=== PATIENT | female | born 1995 | race Caucasian/White ===

== ENCOUNTER 2021-01-22 19:16 | Outpatient (CLI) | payer BC ==
[~2021-01-22 19:16] MED LIST: COLACE 100MG C100 MG PO; IBUPROFEN600 MG PO; LORTAB 5-325 M1 EACH PO
== END 2021-01-22 22:06 | disposition home or self-care (01) ==
LOC: GENOP 19:16
DX: O99.891 Other specified diseases and conditions complicating pregnancy (principal); M54.9 Dorsalgia, unspecified; Z3A.24 24 weeks gestation of pregnancy
CPT/HCPCS: 81001; 96360

== ENCOUNTER 2021-05-01 05:25 | Inpatient (IN) | payer BC ==
[~2021-05-01] VITALS: Ht 165.1 cm; Wt 97.1 kg
[2021-05-01] MEDS ORDERED: PRENATABS FA T1 EACH PO (06:14)
[2021-05-01 06:53] LABS: HEMOGLOBIN 12.1 gm/dl (12.3-15.3); RED BLOOD COUNT 4.91 M/UL (4.00-5.10)
[2021-05-01 07:20] LABS: BUN/CREATININE RATIO 14 (0-10)
[2021-05-01] MEDS ORDERED: HYDROCODON-ACE1 EAC6 PO (07:41)
[2021-05-01] MEDS ORDERED: COLACE 100MG C100 MG PO (07:41)
[2021-05-01] MEDS ORDERED: IBUPROFEN600 MG PO (07:41)
[2021-05-01 23:04] LABS: HEMOGLOBIN 11.2 gm/dl (12.3-15.3)
== END 2021-05-01 23:19 | disposition home or self-care (01) | DRG 788 ==
LOC: OB 05:25
PROVIDERS: Obstetrics & Gynecology; ADMIT Obstetrics & Gynecology
PROC: 4A1HXCZ Monitoring of Products of Conception, Cardiac Rate, External Approach (ICD-10-PCS; 2021-05-01)
PROC: 10D00Z1 Extraction of Products of Conception, Low, Open Approach (ICD-10-PCS; principal; 2021-05-01 07:40)
DX: O34.211 Maternal care for low transverse scar from previous cesarean delivery (principal); O13.4 Gestational [pregnancy-induced] hypertension without significant proteinuria, complicating childbirth; Z3A.38 38 weeks gestation of pregnancy; Z37.0 Single live birth; Z20.822 Contact with and (suspected) exposure to COVID-19; O99.344 Other mental disorders complicating childbirth; F41.9 Anxiety disorder, unspecified; F32.A Depression, unspecified; Z83.3 Family history of diabetes mellitus; Z81.8 Family history of other mental and behavioral disorders; Z82.49 Family history of ischemic heart disease and other diseases of the circulatory system
CPT/HCPCS: 36415; 80053; 81001; 82800; 85014; 85018; 85025; 90471; 90715; C9113; J0690; J1885; J2274; J2370; J2405; J2550; J2590; J3010; J7120; U0002